=== PATIENT | female | born 1995 | race American Indian/Alaskan Native ===

== ENCOUNTER 2018-01-26 02:45 | Emergency (ER) | payer MEDICAID ==
[2018-01-26 02:55] VITALS: TEMP 98.1
[2018-01-26 02:56] VITALS: BMI 25.0
[2018-01-26 04:18] VITALS: BP 110/64; PULSE 72; RESP 16; O2SAT 99
--- NOTE | 2018-01-26 04:22 | ED PDOC ---
HPI: Psych/Substance Abuse Time Seen by Provider: 01/26/18 02:52 Chief Complaint (Nursing): Alcohol Ingestion History Per: Patient, EMS History/Exam Limitations: no limitations Current Symptoms Are (Timing): Still Present Additional Complaint(s): 22-year-old female presents to ED for alcohol ingestion. Patient reports she was drinking alcohol with friends at a bar where she vomitted small amount of red-orange vomit. Otherwise, patient is feeling better. No other medical problems. PMD: Provider TBD Past Medical History Reviewed: Historical Data, Nursing Documentation, Vital Signs Vital Signs: Last Vital Signs Temp 98.1 F 01/26/18 04:12 Pulse 72 01/26/18 04:12 Resp 16 01/26/18 04:12 BP 110/64 01/26/18 04:12 Pulse Ox 99 01/26/18 04:12 - Medical History PMH: No Chronic Diseases - Surgical History Surgical History: No Surg Hx - Family History Family History: States: No Known Family Hx - Allergies Allergies/Adverse Reactions: Allergies Allergy/AdvReac Type Severity Reaction Status Date / Time No Known Allergies Allergy Verified 01/26/18 03:42 Review of Systems ROS Statement: Except As Marked, All Systems Reviewed And Found Negative Gastrointestinal: Positive for: Vomiting Physical Exam - Reviewed Nursing Documentation Reviewed: Yes Vital Signs Reviewed: Yes - Physical Exam Appears: Positive for: Well (Comfortable), No Acute Distress Head Exam: Positive for: ATRAUMATIC, NORMAL INSPECTION, NORMOCEPHALIC Skin: Positive for: Normal Color, Warm Eye Exam: Positive for: EOMI Cardiovascular/Chest: Positive for: Regular Rate, Rhythm Respiratory: Negative for: Respiratory Distress Gastrointestinal/Abdominal: Positive for: Soft. Negative for: Tenderness Extremity: Positive for: Normal ROM Neurologic/Psych: Positive for: Alert, Oriented (x 3), Gait (Steady), Other ( clear speech) - Laboratory Results Urine POC: Negative - ECG O2 Sat by Pulse Oximetry: 99 (RA) Pulse Ox Interpretation: Normal Medical Decision Making Medical Decision Making: Time: 03:42 Impression(s): Vomiting [resolved], Alcohol intoxication [mild] Plan: - ED Urine - Zofran 4 mg PO STAT (-) ED Urine Upon provider evaluation patient is medically stable, and requires no further treatment in the ED at this time. Patient will be discharged. Counseling was provided and all questions were answered regarding diagnosis. There is agreement to discharge plan. Return if symptoms persist or worsen. Scribe Attestation: Documented by Krishna Dhillon, acting as a scribe for Stefan Borja MD. Provider Scribe Attestation: All medical record entries made by the Scribe were at my direction and personally dictated by me. I have reviewed the chart and agree that the record accurately reflects my personal performance of the history, physical exam, medical decision making, and the department course for this patient. I have also personally directed, reviewed, and agree with the discharge instructions and disposition. Disposition - Clinical Impression Clinical Impression: Vomiting, Alcohol abuse with intoxication - Patient ED Disposition Is Patient to be Admitted: No - Disposition [facility] Disposition: Routine/Home Disposition Time: 04:13 Condition: GOOD Additional Instructions: Return for worsening. Follow up with your PCP in 2-3 days. Instructions: Nausea and Vomiting, Adult, Effects of Alcohol on Your Health Forms: [facility] ED School/Work Excuse
== END 2018-01-26 04:25 | disposition home or self-care (01) ==
LOC: H.ER 02:45
DX: F10.129 Alcohol abuse with intoxication, unspecified (principal); R11.10 Vomiting, unspecified